=== PATIENT | male | born 1960 | race African-American/Black ===

== ENCOUNTER 2023-10-11 01:49 | Inpatient (IN) | payer BC, OTHER ==
[~2023-10-11] VITALS: Ht 188 cm; Wt 73.5 kg
[2023-10-11] MEDS: SODIUM CHLORIDE 0.9% 1,000 ML IV ONE (02:15)
[2023-10-11 02:37] LABS: EOSINOPHILS % 2.2 % (0.0-5.0); HEMATOCRIT. 41.3 % (42.0-52.0); HEMOGLOBIN. 13.5 g/dL (14.0-18.0); LYMPHOCYTES % 40.1 % (20.0-50.0); MEAN CORPUSCULAR HEMOGLOBIN 27.2 pg (28.0-32.0); MEAN CORPUSCULAR HGB CONC 32.8 g/dL (31.0-37.0); MEAN PLATELET VOLUME 8.1 fl (7.4-10.4); MONOCYTES % 10.6 % (2.0-8.0); NEUTROPHILS % 46.1 % (40.0-76.0); PLATELET 211 x1000/uL (130-400); RED BLOOD CELL COUNT 4.97 mill/uL (4.7-6.1); RED CELL DISTRIBUTION WIDTH 14.9 % (11.6-14.6); WHITE BLOOD COUNT 7.3 x1000/uL (4.5-11.0)
[2023-10-11] MEDS: ONDANSETRON HCL 4MG/2ML INJ IV STA (02:42)
[2023-10-11 02:43] LABS: CARBON DIOXIDE 26 mEq/L (21-32); CHLORIDE 106 mEq/L (98-107); SODIUM 142 mEq/L (136-145)
[2023-10-11 02:44] LABS: CALCIUM 8.9 mg/dL (8.7-10.4)
[2023-10-11 02:48] LABS: CREATININE 1.3 mg/dL (0.6-1.3)
[2023-10-11 02:49] LABS: D-DIMER 0.49 mg/L FEU (<0.50); GLUCOSE 138 mg/dL (70-105); PROTHROMBIN TIME 10.7 sec (9.6-11.0); UREA NITROGEN BLOOD 10 mg/dL (9-23)
[2023-10-11 02:50] LABS: ALANINE AMINOTRANSFERASE 14 IU/L (10-49); ASPARTATE AMINOTRANSFERASE 23 IU/L (<34)
[2023-10-11 02:51] LABS: ALBUMIN 3.9 g/dL (3.2-4.8); BILIRUBIN TOTAL 0.6 mg/dL (0.1-1.0); PROTEIN TOTAL 6.1 g/dL (6.0-8.3); TROPONIN I HIGH SENSITIVITY 11 ng/L (3.0-53)
[2023-10-11 03:10] LABS: ETHANOL BLOOD < 10 mg/dL (<10)
[2023-10-11 03:45] LABS: BG BASE EXCESS 0.1 mmol/L (-2.0-2.0); BG CARBOXYHEMOGLOBIN 0.3 % (0.5-1.5); BG DEOXYHEMOGLOBIN 0.5 % (0.0-5.0); BG FRACTION INSPIRED OXYGEN 100; BG HCO3 ACT 25.3 mmol/L (22.0-26.0); BG METHEMOGLOBIN 0.1 % (0.0-1.5); BG OXYGEN SATURATION 99.5 % (92.0-98.5); BG OXYHEMOGLOBIN 99.1 % (94.0-97.0); BG PCO2 43.2 mmHg (35.0-45.0); BG PH 7.385 (7.350-7.450); BG PO2 334.1 mmHg (75.0-100.0); BG SAMPLE SITE RIGHT BRACHIAL; BG TOTAL HEMOGLOBIN 13.6 g/dL (12.0-18.0); BG VENT MODE MASK - NRB
[2023-10-11 03:54] LABS: LACTIC ACID 3.7 mmol/L (0.4-2.0)
[2023-10-11] MEDS ORDERED: AZITHROMYCIN 500MG/250ML 250 ML IV NR (06:00)
[2023-10-11] MEDS: LORAZEPAM 2MG/ML INJ IV ONE (06:53)
[2023-10-11] MEDS: CEFTRIAXONE 1GM/50ML 50 ML IV NR (07:07)
[2023-10-11 08:11] LABS: TROPONIN I HIGH SENSITIVITY 29 ng/L (3.0-53)
[2023-10-11] MEDS ORDERED: MAGNESIUM/ALUMINUM HYDROXIDE/SIMETHICONE 30ML UDC PO PRN (09:15)
[2023-10-11] MEDS ORDERED: IPRATROPIUM/ALBUTEROL 0.5-3(2.5)MG/3ML NEB NEB PRN (09:15)
[2023-10-11] MEDS ORDERED: DIPHENHYDRAMINE 50MG/ML VIAL IV PRN (09:15)
[2023-10-11] MEDS ORDERED: GUAIFENESIN 200MG/10ML SUGAR FREE UDC PO PRN (09:15)
[2023-10-11] MEDS ORDERED: ACETAMINOPHEN 325MG TABLET PO PRN ×2 (09:15)
[2023-10-11] MEDS ORDERED: ONDANSETRON HCL 4MG/2ML INJ IV PRN (09:15)
[2023-10-11 10:00] VITALS: BP 161/83; PULSE 54; RESP 16; TEMP 96.4
[2023-10-11] MEDS ORDERED: SILD100T69 PO (10:18)
[2023-10-11] MEDS ORDERED: CYCL30DR EACHEYE (10:18)
[2023-10-11] MEDS ORDERED: ATOR40TA70 PO (10:18)
[2023-10-11] MEDS ORDERED: NAPR-681 PO (10:18)
[2023-10-11] MEDS ORDERED: OLME5TAB PO (10:18)
[2023-10-11 10:37] VITALS: BP 161/83; PULSE 54; RESP 16; TEMP 96.4
[2023-10-11 12:00] VITALS: BP 158/75; PULSE 56; RESP 18; TEMP 98
[2023-10-11] MEDS: ENOXAPARIN 40MG/0.4ML SYR SUBCUT SCH (13:25)
[2023-10-11] MEDS: SODIUM CHLORIDE 0.9% INJ 3ML FLUSH IVF SCH (14:00)
[2023-10-11 16:00] VITALS: BP 157/115; PULSE 85; RESP 18; TEMP 98
[2023-10-11 20:00] VITALS: BP 176/117; PULSE 63; RESP 20; TEMP 95.9
[2023-10-11 21:10] VITALS: PULSE 73; RESP 20; O2SAT 96
[2023-10-11] MEDS: IPRATROPIUM/ALBUTEROL 0.5-3(2.5)MG/3ML NEB HHN SCH (21:10)
[2023-10-11] MEDS: CLONIDINE 0.1MG TABLET PO PRN (23:07)
[2023-10-12] VITALS (9 sets, daily range): BP systolic 136–146; BP diastolic 84–95; PULSE 62–78; RESP 18–20; TEMP 96.6–97.9; O2SAT 98
[2023-10-12] MEDS: CEFTRIAXONE 1GM/50ML 50 ML IV SCH (05:56)
[2023-10-12] MEDS ORDERED: CEFTRIAXONE 1GM/50ML 50 ML IV SCH (07:00)
[2023-10-12 07:12] LABS: CARBON DIOXIDE 29 mEq/L (21-32); CHLORIDE 110 mEq/L (98-107); POTASSIUM 3.8 mEq/L (3.5-5.1); SODIUM 145 mEq/L (136-145)
[2023-10-12 07:13] LABS: CALCIUM 9.4 mg/dL (8.7-10.4)
[2023-10-12 07:17] LABS: CREATININE 1.1 mg/dL (0.6-1.3)
[2023-10-12 07:18] LABS: GLUCOSE 92 mg/dL (70-105); UREA NITROGEN BLOOD 9 mg/dL (9-23)
[2023-10-12 07:20] LABS: BASOPHILS % 0.8 % (0.0-2.0); HEMATOCRIT. 41.9 % (42.0-52.0); HEMOGLOBIN. 13.9 g/dL (14.0-18.0); LYMPHOCYTES % 23.1 % (20.0-50.0); MEAN CORPUSCULAR HEMOGLOBIN 27.4 pg (28.0-32.0); MEAN CORPUSCULAR HGB CONC 33.2 g/dL (31.0-37.0); MEAN CORPUSCULAR VOLUME 82.6 fL (80.0-94.0); MONOCYTES % 11.8 % (2.0-8.0); NEUTROPHILS % 62.3 % (40.0-76.0); PHOSPHORUS 2.9 mg/dL (2.5-4.9); PLATELET 180 x1000/uL (130-400); RED BLOOD CELL COUNT 5.08 mill/uL (4.7-6.1); RED CELL DISTRIBUTION WIDTH 14.7 % (11.6-14.6); WHITE BLOOD COUNT 5.6 x1000/uL (4.5-11.0)
[2023-10-12 11:45] LABS: CLARITY URINE CLEAR (CLEAR); COLOR URINE YELLOW (YELLOW); GLUCOSE URINE NEGATIVE (NEGATIVE); KETONES URINE NEGATIVE (NEGATIVE); LEUKOCYTE ESTERASE URINE NEGATIVE (NEGATIVE); NITRITE URINE NEGATIVE (NEGATIVE); OCCULT BLOOD URINE NEGATIVE (NEGATIVE); PROTEIN URINE NEGATIVE (NEGATIVE); SPECIFIC GRAVITY URINE 1.012 (1.005-1.030); UROBILINOGEN URINE 0.2 E.U./dL (0.2-1.0)
[2023-10-12 12:00] LABS: *AMPHETAMINES SCREEN URINE NEGATIVE (NEGATIVE); *BARBITURATES SCREEN URINE NEGATIVE (NEGATIVE); *BENZODIAZEPINES SCREEN URINE NEGATIVE (NEGATIVE); *COCAINE SCREEN URINE NEGATIVE (NEGATIVE)
[2023-10-12 12:01] LABS: CANNABINOID URINE SCREEN NEGATIVE (NEGATIVE); ECSTASY MDMA SCREEN URINE NEGATIVE (NEGATIVE); METHADONE URINE SCREEN NEGATIVE (NEGATIVE); OPIATES URINE SCREEN NEGATIVE (NEGATIVE); PHENCYCLIDINE URINE SCREEN NEGATIVE (NEGATIVE)
== END 2023-10-12 19:39 | disposition home or self-care (01) | DRG 72 ==
LOC: ER 01:49 → 7EST 05:48
PROVIDERS: ADMIT Internal Medicine; ATTEND Internal Medicine
DX: G93.40 Encephalopathy, unspecified (principal); G90.8 Other disorders of autonomic nervous system; E87.6 Hypokalemia; K57.30 Diverticulosis of large intestine without perforation or abscess without bleeding; I95.9 Hypotension, unspecified; R09.02 Hypoxemia; Z99.81 Dependence on supplemental oxygen
CPT/HCPCS: 36415; 36600; 71045; 74176; 80048; 80053; 80305; 80320; 81003; 82375; 82805; 82962; 83605; 83735; 83880; 84100; 84484; 85025; 85379; 86850; 86900; 93005; 93306; 93970; 94640; 99285; J0696; J1650; J2060; J2405; J7030; G0480